=== PATIENT | female | born 1975 | race Caucasian/White ===

== ENCOUNTER 2022-05-17 09:30 | Day surgery (SDC) | payer OTHER ==
[~2022-05-17] VITALS: Ht 152.4 cm; Wt 65.2 kg
[2022-05-17] MEDS ORDERED: PANT20 (09:51)
== END 2022-05-17 11:44 | disposition home or self-care (01) ==
LOC: ORSCSDS 09:30
PROVIDERS: Student in an Organized Health Care Education/Training Program
PROC: 0DB58ZX Excision of Esophagus, Via Natural or Artificial Opening Endoscopic, Diagnostic (ICD-10-PCS; principal; 2022-05-17 10:45)
PROC: 0DB68ZX Excision of Stomach, Via Natural or Artificial Opening Endoscopic, Diagnostic (ICD-10-PCS; principal; 2022-05-17 10:45)
DX: K21.9 Gastro-esophageal reflux disease without esophagitis (principal); K22.2 Esophageal obstruction; K31.7 Polyp of stomach and duodenum; R13.10 Dysphagia, unspecified; H81.09 Meniere's disease, unspecified ear
CPT/HCPCS: 88305; C1726; J2704; J7120

== ENCOUNTER 2022-06-26 05:53 | Emergency (ER) | payer OTHER ==
[~2022-06-26] VITALS: Ht 152.4 cm; Wt 62.1 kg
[~2022-06-26 05:53] MED LIST: PANT20
[2022-06-26 06:50] LABS: BASOPHILS ABSOLUTE AUTO 0.04 K/mm3 (0.00-0.23); BASOPHILS PERCENT AUTO 0 % (0-2); EOSINOPHILS ABSOLUTE AUTO 0.03 K/mm3 (0.00-0.68); EOSINOPHILS PERCENT AUTO 0 % (0-6); Hematocrit 48.2 % (33.0-51.0); Hemoglobin 15.5 g/dL (11.5-16.0); IMMATURE GRAN ABSOLUTE AUTO 0.02 K/mm3 (0.00-0.10); IMMATURE GRAN PERCENT AUTO 0 % (0-1); LYMPHOCYTES ABSOLUTE AUTO 1.05 K/mm3 (0.84-5.20); LYMPHOCYTES PERCENT AUTO 11 % (21-46); MONOCYTES ABSOLUTE AUTO 0.58 K/mm3 (0.16-1.47); MONOCYTES PERCENT AUTO 6 % (4-13); Mean Corpuscular HGB 28.7 pg (26.0-34.0); Mean Corpuscular HGB Conc 32.2 g/dL (31.5-36.5); Mean Corpuscular Volume 89 fL (80-100); Mean Platelet Volume 12.4 fL (9.1-12.4); NEUTROPHILS ABSOLUTE AUTO 8.13 K/mm3 (1.96-9.15); NEUTROPHILS PERCENT AUTO 83 % (41-73); Platelet Count 245 K/mm3 (150-400); RDW Coefficient Variation 11.8 % (11.7-14.2); RDW Standard Deviation 37.6 fL (35.1-46.3); Red Blood Cell Count 5.41 M/mm3 (3.80-5.20); White Blood Cell Count 9.85 K/mm3 (4.00-11.30)
[2022-06-26 07:20] LABS: Albumin, Blood 3.6 g/dL (3.4-5.0); Albumin/Globulin Ratio 0.9 (0.8-1.8); Bilirubin, Total 0.3 mg/dL (0.1-1.0); Bun/Creatinine Ratio 20.5 (12.0-20.0); Creatinine, Blood 0.83 mg/dL (0.40-1.00); Globulin, Blood 3.9 g/dL (2.2-4.0); Potassium, Blood 4.3 mmol/L (3.5-5.5); Total Protein, Blood 7.5 g/dL (6.4-8.2)
[2022-06-26 09:07] LABS: Source, Urine Clean Catch
[2022-06-26 09:18] LABS: Appearance, Urine Clear (Clear); Bilirubin, Urine Neg (Neg); Blood, Urine Neg (Neg); Color, Urine Yellow (P-Yellow); Glucose Qualitative, Urine Neg (Neg); Ketones, Urine 1+ (Neg); Leukocyte Esterase, Urine Neg (Neg); Nitrite, Urine Neg (Neg); Protein, Urine Neg (Neg); Specific Gravity, Urine 1.025 (1.003-1.022); Urobilinogen, Urine NORM (Normal)
== END 2022-06-26 10:54 | disposition home or self-care (01) ==
LOC: ER 05:53
PROVIDERS: Emergency Medicine
DX: K52.9 Noninfective gastroenteritis and colitis, unspecified (principal); K21.9 Gastro-esophageal reflux disease without esophagitis; Z79.899 Other long term (current) drug therapy
CPT/HCPCS: 80053; 81003; 85025

== ENCOUNTER → 2023-02-06 | Outpatient (CLI) | payer OTHER ==
[2023-02-06 20:12] LABS: BASOPHILS ABSOLUTE AUTO 0.04 K/mm3 (0.00-0.23); BASOPHILS PERCENT AUTO 1 % (0-2); EOSINOPHILS ABSOLUTE AUTO 0.12 K/mm3 (0.00-0.68); EOSINOPHILS PERCENT AUTO 2 % (0-6); Hematocrit 44.5 % (33.0-51.0); Hemoglobin 15.1 g/dL (11.5-16.0); IMMATURE GRAN ABSOLUTE AUTO 0.02 K/mm3 (0.00-0.10); IMMATURE GRAN PERCENT AUTO 0 % (0-1); LYMPHOCYTES ABSOLUTE AUTO 1.63 K/mm3 (0.84-5.20); LYMPHOCYTES PERCENT AUTO 23 % (21-46); MONOCYTES PERCENT AUTO 7 % (4-13); Mean Corpuscular HGB 30.9 pg (26.0-34.0); Mean Corpuscular HGB Conc 33.9 g/dL (31.5-36.5); Mean Corpuscular Volume 91 fL (80-100); Mean Platelet Volume 12.5 fL (9.1-12.4); NEUTROPHILS ABSOLUTE AUTO 4.67 K/mm3 (1.96-9.15); NEUTROPHILS PERCENT AUTO 67 % (41-73); Platelet Count 335 K/mm3 (150-400); RDW Coefficient Variation 11.9 % (11.7-14.2); RDW Standard Deviation 39.4 fL (35.1-46.3); Red Blood Cell Count 4.89 M/mm3 (3.80-5.20); White Blood Cell Count 6.98 K/mm3 (4.00-11.30)
[2023-02-06 22:46] LABS: Very Low Density Lipoprot Chol 36 mg/dL (6-32)
[2023-02-06 22:57] LABS: Alanine Aminotransfer (ALT/SGP 24 U/L (12-78); Albumin, Blood 4.1 g/dL (3.4-5.0); Albumin/Globulin Ratio 1.1 (0.8-1.8); Alk Phos 86 U/L (50-136); Anion Gap 5 mmol/L (6-16); Aspartate Aminotrans (AST/SGOT 24 U/L (12-37); Bilirubin, Total 0.2 mg/dL (0.1-1.0); Blood Urea Nitrogen 14 mg/dL (8-24); Bun/Creatinine Ratio 17.9 (12.0-20.0); CHOL/HDL RATIO 4.8; CO2, Blood 29 mmol/L (21-32); Calcium, Blood 9.2 mg/dL (8.5-10.1); Chloride, Blood 106 mmol/L (98-108); Cholesterol 265 mg/dL (50-200); Creatinine, Blood 0.78 mg/dL (0.40-1.00); Globulin, Blood 3.6 g/dL (2.2-4.0); Glomerular Filtration Rate 93 (60-); Glucose, Blood 104 mg/dL (70-99); HDL Cholesterol 55 mg/dL (>39); LDL/HDL RATIO 3.2; Low Density Lipoprotein Chol 174 mg/dL (0-110); Potassium, Blood 3.9 mmol/L (3.5-5.5); Sodium, Blood 140 mmol/L (136-145); Total Protein, Blood 7.7 g/dL (6.4-8.2); Triglycerides 180 mg/dL (30-160)
== END ==
LOC: LAB SHORT 18:59
PROVIDERS: Family Medicine
DX: E78.00 Pure hypercholesterolemia, unspecified (principal)
CPT/HCPCS: 80053; 80061; 84443; 85025

== ENCOUNTER 2023-02-14 12:19 | Day surgery (SDC) | payer OTHER ==
[~2023-02-14] VITALS: Ht 152.4 cm; Wt 60.9 kg
--- NOTE | 2023-02-14 12:50 | NUR ---
02/14/23 1250 Lila Clark AT 1248 PLEDGET AT 1243
[2023-02-14 14:24] VITALS: BP 117/85
--- NOTE | 2023-02-14 14:24 | NUR ---
02/14/23 1424 Adryan Pham IV REMOVED INTACT. SITE WNL.
== END 2023-02-14 14:15 | disposition home or self-care (01) ==
LOC: ORSCSDS 12:19
PROVIDERS: Ophthalmology
PROC: 08DK3ZZ Extraction of Left Lens, Percutaneous Approach (ICD-10-PCS; principal; 2023-02-14 13:30)
DX: H25.12 Age-related nuclear cataract, left eye (principal); Z86.69 Personal history of other diseases of the nervous system and sense organs; K21.9 Gastro-esophageal reflux disease without esophagitis; Z79.899 Other long term (current) drug therapy
CPT/HCPCS: J2250; J3010; J3301; J7040; V2632

== ENCOUNTER 2023-03-09 10:47 | Day surgery (SDC) | payer OTHER ==
[~2023-03-09] VITALS: Ht 152.4 cm; Wt 62.2 kg
--- NOTE | 2023-03-09 10:58 | NUR ---
NAUSEA AND VOMITING FOLLOWING GENERAL ANETHESIA
--- NOTE | 2023-03-09 11:05 | NUR ---
03/09/23 1105 Lila Clark AT 1101 PLEJORJEET AT 1103
[2023-03-09 12:12] VITALS: BP 126/86
--- NOTE | 2023-03-09 12:21 | NUR ---
03/09/23 1221 Amberly Pickett IV REMOVED WITH NO ISSUE. PT TOLERATED WELL.
== END 2023-03-09 12:24 | disposition home or self-care (01) ==
LOC: ORSCSDS 10:47
PROVIDERS: Ophthalmology
PROC: 08RJ3JZ Replacement of Right Lens with Synthetic Substitute, Percutaneous Approach (ICD-10-PCS; principal; 2023-03-09 12:00)
DX: H25.11 Age-related nuclear cataract, right eye (principal); Z96.1 Presence of intraocular lens; K21.9 Gastro-esophageal reflux disease without esophagitis
CPT/HCPCS: J2250; J3010; J3301; J7040; V2632

== ENCOUNTER 2023-07-16 15:04 | Emergency (ER) | payer OTHER ==
[~2023-07-16] VITALS: Ht 152.4 cm; Wt 62.1 kg
[2023-07-16 15:15] VITALS: BP 160/98
[2023-07-16 15:28] LABS: Source, Urine Clean Catch
[2023-07-16 15:34] LABS: Appearance, Urine Clear (Clear); Bilirubin, Urine Neg (Neg); Blood, Urine Neg (Neg); Color, Urine Yellow (P-Yellow); Glucose Qualitative, Urine Neg (Neg); Ketones, Urine Neg (Neg); Leukocyte Esterase, Urine Neg (Neg); Nitrite, Urine Neg (Neg); Protein, Urine Neg (Neg); Specific Gravity, Urine 1.015 (1.003-1.022); Urobilinogen, Urine NORM (Normal)
== END 2023-07-16 15:53 | disposition home or self-care (01) ==
LOC: ER 15:04
PROVIDERS: Physician Assistant
DX: N39.0 Urinary tract infection, site not specified (principal)
CPT/HCPCS: 81003; 99283

== ENCOUNTER 2025-07-11 12:17 | Day surgery (SDC) | payer OTHER ==
[~2025-07-11] VITALS: Ht 152.4 cm; Wt 69.9 kg
[2025-07-11 13:24] VITALS: BP 150/90
[2025-07-11] MEDS ORDERED: Ondansetron HCl 2 MG / ML 2ML Vial ONE (13:43)
[2025-07-11] MEDS ORDERED: FentaNYL Citrate 50 MCG/ML 2 ML Injection ONE (13:43)
[2025-07-11] MEDS ORDERED: Dexamethasone Sod Phos 10 MG/ML 1ML VIAL ONE (13:43)
[2025-07-11] MEDS ORDERED: Rocuronium Bromide 10 MG/ML 5ML Injection IV ONE (13:43)
[2025-07-11] MEDS ORDERED: Midazolam HCl 1MG / ML 2ML Vial ONE (13:44)
--- NOTE | 2025-07-11 13:53 | NUR ---
History, Chart, Medications and Allergies reviewed before start of procedure. Patient confirms NPO status and agrees with scheduled surgery. Pre-Op teaching done. Pt verbalizes understanding.
--- NOTE | 2025-07-11 13:54 | NUR ---
PT GLASSES PLACED IN LABELED ZIP LOCK AND PLACED IN PACU.
[2025-07-11 15:38] VITALS: BP 121/67
[2025-07-11 15:40] VITALS: BP 138/85
[2025-07-11] MEDS ORDERED: Ketorolac Tromethamine 30mg Vial IV ONE (15:50)
[2025-07-11 15:55] VITALS: BP 130/84
[2025-07-11 16:17] VITALS: BP 131/105
== END 2025-07-11 23:00 | disposition home or self-care (01) ==
LOC: ORSCMMR 12:17 → ORD 13:45 → ORSCMMR 23:00
PROVIDERS: Obstetrics & Gynecology
PROC: 0UB98ZZ Excision of Uterus, Via Natural or Artificial Opening Endoscopic (ICD-10-PCS; principal; 2025-07-11 13:45)
DX: N95.0 Postmenopausal bleeding (principal); N84.0 Polyp of corpus uteri; N95.2 Postmenopausal atrophic vaginitis
CPT/HCPCS: 86850; 86900; 86901; 88305; J1100; J2250; J2405; J2704; J3010; J7120